=== PATIENT | female | born 1990 | race American Indian/Alaskan Native ===

== ENCOUNTER 2022-04-19 20:52 | Emergency (ER) | payer OTHER ==
[2022-04-19] MEDS ORDERED: SODIUM CHLORIDE 0.9% 1000 ML 1,000 ML IV ONE (23:34)
[2022-04-19] MEDS ORDERED: MORPHINE 4 MG/1 ML INJ IV ONE (23:34)
[2022-04-19] MEDS ORDERED: ONDANSETRON 4 MG/2 ML INJ IV ONE (23:34)
[2022-04-20 00:42] LABS: Alanine Aminotransferase 25 units/L (7-56); Albumin 4.5 g/dL (3.9-5); Blood Urea Nitrogen 8 mg/dL (7-17); Hemolysis Index 12
[2022-04-20 01:04] LABS: Basophils # (Auto) 0.1 K/mm3 (0.0-0.1); Basophils % (Auto) 0.8 % (0.0-1.8); Eosinophils % (Auto) 0.1 % (0.0-4.3); Hemoglobin 12.8 gm/dl (10.1-14.3); Lymphocytes % (Auto) 36.2 % (13.4-35.0); Mean Corpuscular HGB Conc 34 % (30-34); Mean Corpuscular Volume 91 fl (79-97); Monocytes # (Auto) 0.5 K/mm3 (0.0-0.8); Monocytes % (Auto) 6.6 % (0.0-7.3); Platelet Count 410 K/mm3 (140-440); Red Blood Count 4.18 M/mm3 (3.65-5.03); Red Cell Distribution Width 12.8 % (13.2-15.2)
[2022-04-20 01:11] LABS: BUN/Creatinine Ratio 13
[2022-04-20 01:15] LABS: Bilirubin,Urine Negative (Negative); Blood,Urine Negative (Negative); Color,Urine Colorless (Yellow); Protein,Urine <15 mg/dL mg/dL (Negative); Urobilinogen,Urine 0.2 mg/dL (<2.0)
--- NOTE | 2022-04-20 02:39 | Cat Scan Report ---
CT abdomen pelvis w con INDICATION / CLINICAL INFORMATION: RLQ and Right flank pain. TECHNIQUE: Axial CT images were obtained through the abdomen and pelvis after 100 cc of Omnipaque [address] scans at this location are performed using CT dose reduction for ALARA by means of automated exposure control. COMPARISON: None available. FINDINGS: LOWER CHEST: No significant abnormality LIVER: No significant abnormality GALLBLADDER/BILIARY TREE: No significant abnormality PANCREAS: No significant abnormality SPLEEN: No significant abnormality ADRENALS: No significant abnormality RIGHT KIDNEY / URETER: No significant abnormality LEFT KIDNEY / URETER: No significant abnormality URINARY BLADDER: No significant abnormality REPRODUCTIVE ORGANS: 3 large masses arise from the uterus, measuring up to 6.8 cm on the right and 7. 7 cm on the left. Additional smaller 5.5 cm mass arises from the superior aspect of the fundus. The r ight mass distorts the endometrium. 2.8 cm right ovarian carpus luteum cyst. The right ovary is mildl y enlarged, measuring 4.7 x 3.7 x 5.2 cm. Left ovary is not visualized. STOMACH / BOWEL: Small bowel is normal in caliber. The colon is unremarkable. The appendix is normal in caliber. LYMPH NODES: No significant adenopathy. VASCULATURE: No significant abnormality. OTHER: No free air, free fluid, or focal fluid collection is identified. SKELETAL SYSTEM: No acute osseous findings. IMPRESSION: 1. 2.8 cm right ovarian corpus luteum cyst with mild asymmetric enlargement of the right ovary. Findi ngs are likely physiologic, though consider further evaluation with pelvic ultrasound, as right ovari an torsion cannot be entirely excluded. 2. No other acute findings. No evidence of localized bowel inflammation or obstruction. Normal append ix. 3. Three large uterine masses, most consistent with uterine fibroids, as above. Signer Name: Marcell Sarabia MD Signed: 04/20/2022 2:35 AM Workstation Name: [id number]
--- NOTE | 2022-04-20 05:55 | Ultrasound Report ---
ULTRASOUND PELVIS INDICATION / CLINICAL INFORMATION: RLQ pain, r/o right ovarion torsion or TOA. TECHNIQUE: Transabdominal. Duplex Color Doppler used: Yes. COMPARISON: Same-day CT FINDINGS: UTERUS: The uterus measures 14.2 x 6.4 x 6.6 cm. The uterus is heterogeneous with multiple fibroids. The endometrial stripe measures 0.6 cm. RIGHT ADNEXA: 2.3 cm complex right ovarian structure. Normal color Doppler blood flow. LEFT ADNEXA: No significant ovarian cyst or mass. Normal color Doppler blood flow. URINARY BLADDER: No significant abnormality. FREE FLUID: None. ADDITIONAL FINDINGS: None. IMPRESSION: 1. No acute findings. No evidence of ovarian torsion. 2. 2.3 cm complex right ovarian structure, likely reflecting hemorrhagic/corpus luteum cyst. 3. Enlarged fibroid uterus. Signer Name: Marcell Sarabia MD Signed: 04/20/2022 5:51 AM Workstation Name: [id number]
--- NOTE | 2022-04-20 06:04 | Emergency Department Report ---
ED Abdominal Pain HPI - General Chief Complaint: Back Pain/Injury Stated Complaint: RT HIP, BACK, LOWER ABD PAIN Source: patient Mode of arrival: Ambulatory Limitations: No Limitations - History of Present Illness Initial Comments: Patient is a nulliparous 31-year-old -[place] female with no past medical history presents to the ED with complaint of acute onset persistent right flank pain that radiates to the right lower quadrant area with nausea and vomiting for the last 12 hours. Patient states that the pain has worsened in the last 6 hours such that any movement makes the pain worse in the right lower quadrant area. Patient denies fall, traumatic injury, heavy lifting, chest pain or shortness of breath, diarrhea, dysuria, urinary frequency and urgency, vagin al bleeding, vaginal discharge, dyspareunia, low back pain, fever, chills, hematuria, chest pain, shortness of breath, -: Sudden, hour(s) (12) Location: RLQ, R flank Radiation: RLQ, suprapubic, R flank Migration to: no migration Severity scale (0 -10): 7 Quality: aching, sharp Consistency: constant Improves With: nothing Worsens With: movement Associated Symptoms: denies other symptoms, nausea, vomiting. denies: diarrhea, fever, chills, constipation, dysuria, hematemesis, hematochezia, melena, hematuria, syncope - Related Data LMP Date: 03/27/22 Previous Rx's Medication Instructions Recorded Last Taken Type Cyclobenzaprine HCl [Flexeril 5 MG 5 mg PO TID #15 tab 07/24/16 Unknown Rx TAB] Ibuprofen [Motrin 800 MG tab] 800 mg PO Q8HR PRN #25 tablet 07/24/16 Unknown Rx Ibuprofen [Motrin] 800 mg PO Q8HR PRN #30 tablet 04/20/22 Unknown Rx Ondansetron [Zofran Odt] 4 mg PO Q6HR PRN #20 tab.rapdis 04/20/22 Unknown Rx traMADoL [Ultram] 50 mg PO Q6HR PRN #12 tablet 04/20/22 Unknown Rx Allergies Allergy/AdvReac Type Severity Reaction Status Date / Time No Known Allergies Allergy Unverified 07/24/16 16:39 ED Review of Systems ROS: Stated complaint: RT HIP, BACK, LOWER ABD PAIN Other details as noted in HPI Constitutional: denies: chills, fever Eyes: denies: eye pain, eye discharge, vision change ENT: denies: ear pain, throat pain Respiratory: denies: cough, shortness of breath, wheezing Cardiovascular: denies: chest pain, palpitations Endocrine: no symptoms reported Gastrointestinal: abdominal pain (Right lower quadrant and right flank pain), nausea, vomiting. denies: diarrhea Genitourinary: denies: urgency, dysuria, discharge Musculoskeletal: denies: back pain, joint swelling, arthralgia Skin: denies: rash, lesions Neurological: denies: headache, weakness, paresthesias Psychiatric: denies: anxiety, depression Hematological/Lymphatic: denies: easy bleeding, easy bruising ED Past Medical Hx - Social History Smoking Status: Never Smoker Substance Use Type: None - Medications Home Medications: Home Medications Medication Instructions Recorded Confirmed Last Taken Type Cyclobenzaprine HCl [Flexeril 5 MG 5 mg PO TID #15 tab 07/24/16 Unknown Rx TAB] Ibuprofen [Motrin 800 MG tab] 800 mg PO Q8HR PRN #25 tablet 07/24/16 Unknown Rx Ibuprofen [Motrin] 800 mg PO Q8HR PRN #30 tablet 04/20/22 Unknown Rx Ondansetron [Zofran Odt] 4 mg PO Q6HR PRN #20 tab.rapdis 04/20/22 Unknown Rx traMADoL [Ultram] 50 mg PO Q6HR PRN #12 tablet 04/20/22 Unknown Rx ED Physical Exam - General Limitations: No Limitations General appearance: alert, in no apparent distress - Head Head exam: Present: atraumatic, normocephalic, normal inspection - Eye Eye exam: Present: normal appearance, PERRL, EOMI Pupils: Present: normal accommodation - ENT ENT exam: Present: normal exam, normal orophraynx, mucous membranes moist, TM's normal bilaterally, normal external ear exam - Neck Neck exam: Present: normal inspection, full ROM - Respiratory Respiratory exam: Present: normal lung sounds bilaterally. Absent: respiratory distress, wheezes, rales, rhonchi - Cardiovascular Cardiovascular Exam: Present: regular rate, normal rhythm, normal heart sounds. Absent: systolic murmur, diastolic murmur, rubs, gallop - GI/Abdominal GI/Abdominal exam: Present: soft, tenderness (Palpable RLQ Pain), normal bowel sounds - Extremities Exam Extremities exam: Present: normal inspection - Back Exam Back exam: Present: normal inspection - Neurological Exam Neurological exam: Present: alert, oriented X3 - Psychiatric Psychiatric exam: Present: normal affect, normal mood - Skin Skin exam: Present: warm, dry, intact, normal color. Absent: rash ED Course Vital Signs 04/19/22 04/20/22 20:54 06:39 Temperature 98.2 F Pulse Rate 86 84 Respiratory 18 12 Rate Blood Pressure 124/80 129/83 [Left] O2 Sat by Pulse 100 100 Oximetry ED Medical Decision Making - Lab Data Result diagrams: 04/19/22 23:36 04/19/22 23:36 - Radiology Data Radiology results: report reviewed, image reviewed [facility] [address] [place] [address] Cat Scan Report Signed Patient: BILL SINGLETARY MR#: [id number] : 1990 Acct:[id number] Age/Sex: 31 / F ADM Date: 04/19/22 Loc: ED Attending Dr: Ordering Physician: ELVIS STAPLETON Date of Service: 04/19/22 Procedure(s): CT abdomen pelvis w con Accession Number(s): [id number] cc: ELVIS STAPLETON CT abdomen pelvis w con INDICATION / CLINICAL INFORMATION: RLQ and Right flank pain. TECHNIQUE: Axial CT images were obtained through the abdomen and pelvis after 100 cc of Omnipaque [address] scans at this location are performed using CT dose reduction for ALARA by means of automated exposure control. COMPARISON: None available. FINDINGS: LOWER CHEST: No significant abnormality LIVER: No significant abnormality GALLBLADDER/BILIARY TREE: No significant abnormality PANCREAS: No significant abnormality SPLEEN: No significant abnormality ADRENALS: No significant abnormality RIGHT KIDNEY / URETER: No significant abnormality LEFT KIDNEY / URETER: No significant abnormality URINARY BLADDER: No significant abnormality REPRODUCTIVE ORGANS: 3 large masses arise from the uterus, measuring up to 6.8 cm on the right and 7.7 cm on the left. Additional smaller 5.5 cm mass arises from the superior aspect of the fundus. The right mass distorts the endometrium. 2.8 cm right ovarian carpus luteum cyst. The right ovary is mildly enlarged, measuring 4.7 x 3.7 x 5.2 cm. Left ovary is not visualized. STOMACH / BOWEL: Small bowel is normal in caliber. The colon is unremarkable. The appendix is normal in caliber. LYMPH NODES: No significant adenopathy. VASCULATURE: No significant abnormality. OTHER: No free air, free fluid, or focal fluid collection is identified. SKELETAL SYSTEM: No acute osseous findings. IMPRESSION: 1. 2.8 cm right ovarian corpus luteum cyst with mild asymmetric enlargement of the right ovary. Findings are likely physiologic, though consider further evaluation with pelvic ultrasound, as right ovarian torsion cannot be entirely excluded. 2. No other acute findings. No evidence of localized bowel inflammation or obstruction. Normal appendix. 3. Three large uterine masses, most consistent with uterine fibroids, as above. Signer Name: Benjamin Sarabia MD Signed: 04/20/2022 2:35 AM Workstation Name: [id number] Transcribed By: KAMLESH Dictated By: BENJAMIN SARABIA MD Electronically Authenticated By: BENJAMIN SARABIA MD Signed Date/Time: 04/20/22234 DD/ 0153 TD/TT: -- [facility] [address] [place] [address] Ultrasound Report Signed Patient: BILL SINGLETARY MR#: [id number] : 1990 Acct:[id number] Age/Sex: 31 / F ADM Date: 04/19/22 Loc: ED Attending Dr: Ordering Physician: ELVIS STAPLETON Date of Service: 04/20/22 Procedure(s): US pelvic complete Accession Number(s): [id number] cc: ELVIS STAPLETON ULTRASOUND PELVIS INDICATION / CLINICAL INFORMATION: RLQ pain, r/o right ovarion torsion or TOA. TECHNIQUE: Transabdominal. Duplex Color Doppler used: Yes. COMPARISON: Same-day CT FINDINGS: UTERUS: The uterus measures 14.2 x 6.4 x 6.6 cm. The uterus is heterogeneous with multiple fibroids. The endometrial stripe measures 0.6 cm. RIGHT ADNEXA: 2.3 cm complex right ovarian structure. Normal color Doppler blood flow. LEFT ADNEXA: No significant ovarian cyst or mass. Normal color Doppler blood flow. URINARY BLADDER: No significant abnormality. FREE FLUID: None. ADDITIONAL FINDINGS: None. IMPRESSION: 1. No acute findings. No evidence of ovarian torsion. 2. 2.3 cm complex right ovarian structure, likely reflecting hemorrhagic/corpus luteum cyst. 3. Enlarged fibroid uterus. Signer Name: Benjamin Sarabia MD Signed: 04/20/2022 5:51 AM Workstation Name: [id number] Transcribed By: JS Dictated By: BENJAMIN SARABIA MD Electronically Authenticated By: BENJAMIN SARABIA MD Signed Date/Time: 04/20/22550 DD/ TD/TT: - Medical Decision Making This is a nulliparous 31-year-old -[place] female with no past medical history presents to the ED with complaint of acute onset persistent right flank pain that radiates to the right lower quadrant area with nausea and vomiting for the last 12 hours. Patient states that the pain has worsened in the last 6 hours such that any movement makes the pain worse in the right lower quadrant area. In the ED, patient is alert and oriented x3 and is not in any distress. Patient was treated for pain in the ED. Patient also received antiemetics in the ED. The lab test results were reviewed and are all nonactionable. Pelvic ultrasound showed a 2.3 cm complex right ovarian structure, likely reflecting hemorrhagic/corpus luteum cyst and enlarged fibroid uterus. The abdomen pelvis CT scan with IV contrast showed a 2.8 cm right ovarian corpus luteum cyst with mild asymmetric enlargement of the right ovary. This findings are likely physiologic, though consider further evaluation with pelvic ultrasound, as right ovarian torsion cannot be entirely excluded. There was no other acute findings. No evidence of localized bowel inflammation or obstruction. Normal appendix. In addition, there were three large uterine masses, most consistent with uterine fibroids. On reevaluation, patient's pain is well controlled medication. Patient will discharge home on pain medications and antiemetics and advised to follow-up with [facility] physician in 7 to 10 days for reevaluation. Patient was advised return to the ED immediately if symptoms get worse. - Differential Diagnosis Ovarian cyst; appendicitis; UTI; ; uterine fibroid; kidney stone; Critical care attestation.: If time is entered above; I have spent that time in minutes in the direct care of this critically ill patient, excluding procedure time. ED Disposition Clinical Impression: Acute abdominal pain in right lower quadrant, Nausea and vomiting in adult, Complex cyst of right ovary Uterine fibroid Qualifiers: Uterine leiomyoma location: intramural, submucous, and subserous Qualified Code(s): D25.1 - Intramural leiomyoma of uterus Disposition: HOME / SELF CARE / HOMELESS Is pt being admited?: No Does the pt Need Aspirin: No Condition: Stable Instructions: Uterine Fibroids, [id number], Nausea and Vomiting, Adult, [id number], Abdominal Pain, Adult, [id number], Ovarian Cyst, [id number] Additional Instructions: All lab test results were reviewed and are all nonactionable. Pelvic ultrasound showed multiple uterine fibroids in varying sizes and locations in the ED uterus. It also showed complex right ovarian cyst with no evidence of tubo- ovarian abscess or ovarian torsion. Abdomen pelvis CT scan with IV contrast showed a normal appendix and a 2.3 cm right ovarian cyst. Therefore your symptoms are likely due to the right ovarian cyst as well as uterine fibroids. Therefore take medication with food, drink plenty of fluids, follow-up with your [facility] physician in 5 to 7 days for reevaluation. Return to the ED immediately if symptoms get worse. Prescriptions: Ibuprofen [Motrin] 800 mg PO Q8HR PRN #30 tablet PRN Reason: Pain , Severe (7-10) traMADoL [Ultram] 50 mg PO Q6HR PRN #12 tablet PRN Reason: Pain Ondansetron [Zofran Odt] 4 mg PO Q6HR PRN #20 tab.rapdis PRN Reason: Nausea Referrals: MARYURI JARVIS MD [Staff Physician] - 7-10 days Forms: Accompanied Note, Work/School Release Form(ED) Time of Disposition: 06:06 Print Language: IRAQI
[2022-04-20 06:40] VITALS: BP 129/83
== END 2022-04-20 06:40 | disposition home or self-care (01) ==
LOC: ED 20:52
DX: N83.201 Unspecified ovarian cyst, right side (principal); D25.9 Leiomyoma of uterus, unspecified; R11.2 Nausea with vomiting, unspecified; Z79.899 Other long term (current) drug therapy
CPT/HCPCS: 36415; 74177; 76856; 80053; 81001; 83690; 84703; 85025; 96361; 96374; 96375; 99284; J2270; J2405; J7030; Q9967